=== PATIENT | male | born 1955 | race Caucasian/White ===

== ENCOUNTER → 2020-05-07 10:49 | Outpatient (CLI) | payer BC, SELFPAY | PROVIDERS: Visit Provider Family Medicine | DX: S91.302A Unspecified open wound, left foot, initial encounter (principal) | CPT/HCPCS: 87070; 87077; 87186; 87205 ==

== ENCOUNTER → 2020-05-14 14:20 | Outpatient (CLI) | payer BC, SELFPAY ==
--- NOTE | 2020-05-14 14:26 | XR_ITS ---
PROCEDURE: XR FOOT WT BEARING LT 3V CLINICAL INDICATION: foot wound Pain COMPARISON: No exams were available for comparison FINDINGS: Minimal osteoarthritic changes are present at the 1st MTP joint. Mild pes planus. Mild osteoarthritis also noted at the talonavicular and navicular cuneiform and tarsal metatarsal junction. There has been prior ORIF of the calcaneus with lateral bony sideplate and multiple cortical screws with an old calcaneal fracture noted. The talocalcaneal joint space is not well delineated on this exam. Hypertrophic changes are present along the calcaneus at the tail 0 calcaneal junction posteriorly. Small amount of soft tissue gas is noted at the distal metatarsal region. Bandage artifact is present at this area. IMPRESSION: Postsurgical changes with pes planus and osteoarthritis with old calcaneal fracture. Small amount of soft tissue gas along the dorsal aspect of the foot at the distal metatarsal region Dictated by: Tony Dela Cruz MD 05/14/2020 16:21 Tony Dela Cruz MD in [place] 05/14/2020 16:21
[2020-05-14 15:24] LABS: Basophils # 0.1 K/mm3 (0-0.2); Basophils % 0.7 % (0.1-2.0); Eosinophils # 0.4 K/mm3 (0.0-0.4); Eosinophils % 3.7 % (0.1-12.0); Hematocrit 52.2 % (42.0-52.0); Hemoglobin 16.8 g/dL (14.1-18.0); Lymphocytes # 2.2 K/mm3 (0.7-4.5); Lymphocytes % 19.3 % (10-50); Mean Corpuscular HGB Conc 32.2 g/dL (31.8-35.4); Mean Corpuscular Hemoglobin 28.7 pg (27.0-31.2); Mean Corpuscular Volume 89.2 fl (80-94); Mean Platelet Volume 7.8 fl (7.4-10.4); Monocytes % 8.6 % (1.7-9.3); Neutrophils # 7.8 K/mm3 (1.8-7.8); Neutrophils % 67.6 % (37.0-80.0); Platelet Count 420 K/mm3 (142-424); Red Blood Count 5.86 M/mm3 (4.60-6.20); Red Cell Distribution Width 14.7 % (11.5-17.5); White Blood Count 11.5 K/mm3 (4.8-10.8)
[2020-05-14 15:48] LABS: Erythrocyte Sedimentation Rate 9 mm/hr (0-20)
[2020-05-14 15:56] LABS: Chloride 96 mmol/L (98-107)
[2020-05-14 15:57] LABS: Potassium 3.9 mmoL/L (3.5-5.1); Sodium 139 mmol/L (136-145)
[2020-05-14 15:59] LABS: Alanine Aminotransferase 24 U/L (12-78); Alkaline Phosphatase 74 U/L (38-126); Aspartate Amino Transferase 27 U/L (17-59); Bilirubin,Total 0.5 mg/dl (0.2-1.3); Blood Urea Nitrogen 17 mg/dl (9-20); Estimated Glomerular Filt Rate 36 ml/min (>60); GFR (African American) 44 ML/MIN (>60)
[2020-05-14 16:00] LABS: Albumin Level 4.1 g/dl (3.5-5.0); Albumin/Globulin Ratio 1.2 (1.1-1.8); Anion Gap 12.9 mEq/L (5-15); Calcium 9.4 mg/dl (8.4-10.2); Carbon Dioxide 34 mmol/L (22.0-30.0); Globulin 3.5 g/dL (1.3-3.2); Glucose 101 mg/dl (74-100); Total Protein,Serum 7.6 g/dl (6.3-8.2)
[2020-05-14 16:05] LABS: C-Reactive Protein 3.6 mg/L (0-4)
== END ==
PROVIDERS: PCP Family Medicine; Visit Provider Nurse Practitioner
DX: L03.116 Cellulitis of left lower limb (principal); Z51.89 Encounter for other specified aftercare
CPT/HCPCS: 36415; 73630; 80053; 85025; 85651; 86140

== ENCOUNTER → 2020-05-21 10:52 | Outpatient (CLI) | payer BC, SELFPAY ==
--- NOTE | 2020-05-21 10:52 | MR_ITS ---
PROCEDURE: MR FOOT LT WO/W CON CLINICAL INDICATION: wound, cellulitis dropped a piece of wood on top of foot. caused hematoma's pt is a diabetic. redness and swelling of entire foot. open wound on dorsal aspect of foot around 2-4th metatarsals. COMPARISON: CR XR FOOT WT BEARING LT 3V from 05/14/2020 TECHNIQUE: Routine multiplanar multi echo sequences are performed without and with gadolinium enhancement. FINDINGS: There is extensive artifact in the ankle and hindfoot from prior talocalcaneal fusion with bony metallic hardware. The area of clinical concern is along the dorsal aspect of the midfoot at the metatarsal region. There is a skin defect within the dorsal aspect of the foot along mid to distal aspect of the 3rd metatarsal. This defect extends subcutaneously toward the distal aspect of the 3rd metatarsal. There is soft tissue swelling in this region with increased T2 signal and some enhancement. No abscess is evident. No bone marrow edema of the metatarsal area. There is increased T2 signal involving the distal aspect of the proximal phalanx of the 2nd toe as seen on the axial images. This however may be due to partial volume averaging from a small amount of fluid in this area as this is not reproduced on the coronal images. IMPRESSION: 1. Diffuse subcutaneous edema consistent with cellulitis along the dorsal aspect of the foot with a focal soft tissue defect at the mid to distal 3rd metatarsal region. No evidence of abscess or osteomyelitis. 2. Artifact with postsurgical changes in the hindfoot. 3. Small focal area of increased T2 signal involves the distal aspect of the proximal phalanx of the 2nd toe probably related to partial volume averaging from some underlying fluid at this area as opposed to true bone marrow edema. Dictated by: Tony Dela Cruz MD 05/24/2020 10:41 Tony Dela Cruz MD in [place] 05/24/2020 10:41
== END ==
PROVIDERS: PCP Family Medicine; Visit Provider Podiatrist
DX: L03.116 Cellulitis of left lower limb (principal); Z51.89 Encounter for other specified aftercare
CPT/HCPCS: 73720; A9576

== ENCOUNTER → 2020-05-31 09:56 | Outpatient (CLI) | payer BC, SELFPAY ==
[2020-05-31 10:43] LABS: Basophils # 0.1 K/mm3 (0-0.2); Eosinophils # 0.6 K/mm3 (0.0-0.4); Eosinophils % 5.2 % (0.1-12.0); Hematocrit 49.7 % (42.0-52.0); Hemoglobin 15.6 g/dL (14.1-18.0); Lymphocytes # 1.7 K/mm3 (0.7-4.5); Lymphocytes % 15.6 % (10-50); Mean Corpuscular HGB Conc 31.5 g/dL (31.8-35.4); Mean Corpuscular Volume 92.2 fl (80-94); Mean Platelet Volume 7.6 fl (7.4-10.4); Monocytes # 0.9 K/mm3 (0.1-1.0); Monocytes % 8.6 % (1.7-9.3); Neutrophils # 7.4 K/mm3 (1.8-7.8); Neutrophils % 69.6 % (37.0-80.0); Platelet Count 283 K/mm3 (142-424); Red Blood Count 5.39 M/mm3 (4.60-6.20); Red Cell Distribution Width 14.4 % (11.5-17.5); White Blood Count 10.7 K/mm3 (4.8-10.8)
[2020-05-31 12:05] LABS: Alanine Aminotransferase 28 U/L (12-78); Albumin Level 4.2 g/dl (3.5-5.0); Albumin/Globulin Ratio 1.2 (1.1-1.8); Alkaline Phosphatase 89 U/L (38-126); Anion Gap 12.1 mEq/L (5-15); Aspartate Amino Transferase 38 U/L (17-59); Blood Urea Nitrogen 17 mg/dl (9-20); Calcium 9.6 mg/dl (8.4-10.2); Carbon Dioxide 31 mmol/L (22.0-30.0); Chloride 99 mmol/L (98-107); Chol/HDL Ratio 7.6 (1-3.5); Cholesterol 237 mg/dl (140-200); Estimated Glomerular Filt Rate 51 ml/min (>60); GFR (African American) 62 ML/MIN (>60); Globulin 3.5 g/dL (1.3-3.2); Glucose 137 mg/dl (74-100); HDL Cholesterol 31 mg/dl (40-60); Potassium 4.1 mmoL/L (3.5-5.1); Sodium 138 mmol/L (136-145); Total Protein,Serum 7.7 g/dl (6.3-8.2); Triglycerides 346 mg/dl (30-150); VLDL Cholesterol 69 mg/dL (0-40)
[2020-05-31 12:16] LABS: C-Reactive Protein 1.7 mg/L (0-4)
[2020-05-31 12:31] LABS: Erythrocyte Sedimentation Rate 2 mm/hr (0-20)
[2020-05-31 13:52] LABS: Hemoglobin A1C 6.6 % (4.0-6.0)
[2020-06-07 09:03] LABS: Testosterone, Total, LC/MS 427.5 ng/dL (264.0-916.0)
== END ==
PROVIDERS: Visit Provider Podiatrist
DX: E11.42 Type 2 diabetes mellitus with diabetic polyneuropathy (principal); Z51.89 Encounter for other specified aftercare
CPT/HCPCS: 36415; 80053; 80061; 83036; 84403; 85025; 85651; 86140

== ENCOUNTER 2020-06-14 10:00 | Outpatient (RCR) | payer BC, SELFPAY | END 2020-06-14 10:45 | disposition home or self-care (01) | LOC: PT 10:00 | PROVIDERS: PCP Family Medicine; Visit Provider Family Medicine | DX: S91.302A Unspecified open wound, left foot, initial encounter; S95 Injury of blood vessels at ankle and foot level | CPT/HCPCS: 97161; 97164; 97597; 97598 ==

== ENCOUNTER → 2020-11-24 09:12 | Outpatient (CLI) | payer BC, SELFPAY ==
[2020-11-24 10:34] LABS: Coronavirus 19 IgG Antibody Negative (Negative); Coronavirus 19 IgM Antibody Negative (Negative)
== END ==
PROVIDERS: Visit Provider Internal Medicine Gastroenterology
DX: Z01.812 Encounter for preprocedural laboratory examination (principal); Z11.52 Encounter for screening for COVID-19; Z13.810 Encounter for screening for upper gastrointestinal disorder; Z12.11 Encounter for screening for malignant neoplasm of colon
CPT/HCPCS: 36415; 86328

== ENCOUNTER 2020-11-26 12:46 | Day surgery (SDC) | payer BC, SELFPAY ==
[2020-11-22 10:01] VITALS: BMI 42.3
[2020-11-26 13:22] VITALS: BP 117/93; PULSE 89; RESP 18; TEMP 37.2; O2SAT 94
[2020-11-26 13:35] LABS: POC Glucose,Bedside 114 (70-110)
[2020-11-26 14:20] VITALS: O2SAT 97
--- NOTE | 2020-11-26 14:33 | HMH.PROC ---
[facility] Procedure Note Procedure Note:: Upper Endoscopy Procedure Report: Esophagogastroduodenoscopy with cold biopsies Endoscopost: Ahmet Dixon II, MD Referring Physician: Dwaine Julio MD Date of Procedure: November 26, 2020 Equipment: Olympus GIF 190 standard upper endoscope Sedation: MAC sedation Indications: Mr. Melendez is a 64-year-old gentleman with recently worsened acid reflux and belching. He did have his PPI (I believe omeprazole) discontinued prior to his ultrasound last month and he developed more indigestion. EGD is performed for further evaluation. He reports no dysphagia. His symptoms are improving. He does get some bloating and lower abdominal discomfort. Procedure: Prior to the procedure, a history and physical exam was performed, and patient's medications and allergies were reviewed. The risks, benefits and alternatives of the sedation and procedure were discussed with the patient. All questions were answered and informed consent was obtained. The patient was brought to the procedure room. Patient identification and proposed procedure were verified by the physician and the nurse. The patient was placed in a left lateral decubitus position and the scope was passed under direct vision. Throughout the procedure, the patient's blood pressure, pulse, and oxygen saturations were monitored continuously. The upper GI endoscopy was accomplished without difficulty. The patient tolerated the procedure well. Findings: The scope was passed directly into the upper esophagus and advanced to the third portion of the duodenum. The post bulbar duodenum and duodenal bulb were normal with normal mucosa and conniventes. The scope was withdrawn through a normal duodenal bulb and pylorus into the stomach. There was bile reflux with moderate linear reactive gastropathy of the antrum and body of the stomach. The remainder of the fundus of the stomach was grossly normal. Upon retroflexion there was no hiatal hernia. 2 biopsies were taken in the antrum and along the lesser curvature for histology to rule out gastritis and/or H pylori. The scope was then withdrawn into the esophagus. There was a serrated Z-line. There was no evidence of reflux esophagitis or Tinoco's. There was no Schatzki's ring. There were tertiary contractions and evidence of mild to moderate esophageal dysmotility. The remainder of the esophageal mucosa was normal. Impression: 1. Nonerosive GERD with mild to moderate esophageal dysmotility 2. Bile reflux with moderate linear reactive gastropathy Plan: I will follow-up the biopsies. The patient's symptoms of GERD and dyspepsia are improving. I will proceed with diagnostic colonoscopy secondary to his recent bright red blood per rectum and lower abdominal discomfort.
--- NOTE | 2020-11-26 14:45 | HMH.PROC ---
[facility] Procedure Note Procedure Note:: Colonoscopy Procedure Report: Colonoscopy with hemorrhoid band ligation Endoscopist: Ahmet Dixon II, MD Referring physician: Dwaine Julio MD Date of Procedure: November 26, 2020 Equipment: Olympus 190 variable stiffness pediatric colonoscope Sedation: MAC sedation Indication: Mr. Melendez is a 64-year-old gentleman with bright red rectal bleeding and lower abdominal pain and discomfort. He reports regular bowel function but does have obstipation/incomplete defecation with excessive wiping. He reports no weight loss or family history of colon cancer. His last colonoscopy was 13 to 15 years ago. Procedure: Prior to the procedure, a history and physical exam was performed, and patient's medications and allergies were reviewed. The risks, benefits and alternatives of the sedation and procedure were discussed with the patient. All questions were answered and informed consent was obtained. The patient was brought to the procedure room. Patient identification and proposed procedure were verified by the physician and the nurse. The patient was placed in a left lateral decubitus position and the scope was passed under direct vision. Throughout the procedure, the patient's blood pressure, pulse, and oxygen saturations were monitored continuously. The colonoscopy was accomplished without difficulty. The patient tolerated the procedure well. Findings: On digital rectal examination there was normal rectal tone. There were no external hemorrhoids. The prostate was 2+, smooth, very mildly firm, symmetric without nodules. The colonoscope was introduced through the anal canal to the rectum and advanced to the cecum. The ileocecal valve and appendiceal orifice were identified. The scope was advanced a short distance into the ileum which appeared grossly normal. The scope was then withdrawn into the colon. The cecum, ascending and transverse colon and mucosa were grossly normal. There were scattered diverticuli throughout the descending and sigmoid colon (LEFT colon). The rectum itself was normal. Upon retroflexion within the rectum there were grade 2 internal hemorrhoids. 3 columns of hemorrhoids were banded using 3 bands with excellent ligation effect. The preparation was good throughout with [place] Preparation Score of 8 out of 9. The cecal time was 12 minutes. Impression: 1. Left-sided diverticulosis 2. Grade 2 internal hemorrhoids status post band ligation x3 Plan: I would encourage bulk fiber supplementation on a long-term daily maintenance basis. The patient will not require screening/surveillance colonoscopy again for 10 years by ACS guidelines.
[2020-11-26 14:54] VITALS: BP 103/50; PULSE 71; RESP 12; TEMP 36.9; O2SAT 94
[2020-11-26 15:04] VITALS: BP 112/61; PULSE 81; RESP 16; O2SAT 92
[2020-11-26 15:14] VITALS: BP 117/66; PULSE 73; RESP 16; O2SAT 96
[2020-11-26 15:24] VITALS: BP 122/78; PULSE 70; RESP 16; TEMP 36.9; O2SAT 96
--- NOTE | 2020-11-26 17:47 | P.PN_ITS ---
[facility] Anesthesia Checklist - Patient Identification Patient Identification: Arm Band - Structural Data Admitted From: Home Planned Operative Procedure/s: EGD Consent for Planned Operative Procedure(s) Verified: Yes Verified Documents: Surgical Consent, History and Physical - NPO Status Verified Time NPO: 00:00 - Airway Assessment C-Spine Mobility Assessed: Yes TMJ Mobility Assessed: Yes Dentition: Good Dentition - Neurological Assessment Level of Consciousness: Awake, Alert - Anesthesia Plan Anesthesia Risk discussed: Yes Anesthesia Plan: Verified ASA Class: III Anesthesia Type: MAC [facility] History Medical History: Reports:: Diabetes Mellitus Type 2 Denies:: Cancer, Diabetes Mellitus Type 1, Internal Pacemaker, MRSA, Seizures *Have you ever received a pneumonia vaccine?: No *Have you received a flu vaccine this season?: No Anesthesia experience/problems:: None Laterality Cases: Bilateral: Tonsillectomy Other Surgeries: Yes: Other. No: Pacemaker Amputation: No Fractures: Yes - *Social History Smoking Status: Never smoker Alcohol Intake: never Substance Use Type: denies use *Occupational Status:: retired Housing: house Household Members: spouse *Travel in the last 8 weeks: None Family Hx:: No significant family history
== END 2020-11-26 15:24 | disposition home or self-care (01) ==
LOC: OUTP 12:48
PROVIDERS: PCP Family Medicine; Visit Provider Internal Medicine Gastroenterology
PROC: 0DJ08ZZ Inspection of Upper Intestinal Tract, Via Natural or Artificial Opening Endoscopic (ICD-10-PCS; CPT 43235; principal; 2020-11-26 14:00)
DX: K57.30 Diverticulosis of large intestine without perforation or abscess without bleeding; K64.1 Second degree hemorrhoids; K21.9 Gastro-esophageal reflux disease without esophagitis; K22.4 Dyskinesia of esophagus; K31.9 Disease of stomach and duodenum, unspecified; E11.9 Type 2 diabetes mellitus without complications; I11.0 Hypertensive heart disease with heart failure; E78.5 Hyperlipidemia, unspecified; Z95.818 Presence of other cardiac implants and grafts; I50.9 Heart failure, unspecified; Z88.2 Allergy status to sulfonamides; Z79.899 Other long term (current) drug therapy
CPT/HCPCS: 45398; 43239; 82962

== ENCOUNTER → 2021-11-28 11:25 | Outpatient (CLI) | payer MEDICARE, SELFPAY ==
[2021-11-28 11:57] LABS: Basophils # 0.1 K/mm3 (0-0.2); Basophils % 1.5 % (0.1-2.0); Eosinophils # 0.3 K/mm3 (0.0-0.4); Hematocrit 47.3 % (42.0-52.0); Hemoglobin 15.1 g/dL (14.1-18.0); Lymphocytes # 1.7 K/mm3 (0.7-4.5); Lymphocytes % 18.2 % (10-50); Mean Corpuscular Hemoglobin 26.6 pg (27.0-31.2); Mean Corpuscular Volume 83.4 fl (80-94); Mean Platelet Volume 7.9 fl (7.4-10.4); Monocytes # 0.8 K/mm3 (0.1-1.0); Monocytes % 8.4 % (1.7-9.3); Neutrophils # 6.6 K/mm3 (1.8-7.8); Neutrophils % 68.9 % (37.0-80.0); Platelet Count 334 K/mm3 (142-424); Red Blood Count 5.67 M/mm3 (4.60-6.20); White Blood Count 9.6 K/mm3 (4.8-10.8)
[2021-11-28 12:39] LABS: Chloride 101 mmol/L (98-107); Potassium 4.4 mmoL/L (3.5-5.1); Sodium 138 mmol/L (136-145)
[2021-11-28 12:41] LABS: Blood Urea Nitrogen 19 mg/dl (9-20); Estimated Glomerular Filt Rate 44 ml/min (>60); GFR (African American) 53 ML/MIN (>60)
[2021-11-28 12:42] LABS: Alanine Aminotransferase 25 U/L (12-78); Albumin Level 4.1 g/dl (3.5-5.0); Albumin/Globulin Ratio 1.1 (1.1-1.8); Alkaline Phosphatase 66 U/L (38-126); Anion Gap 11.4 mEq/L (5-15); Aspartate Amino Transferase 28 U/L (17-59); Bilirubin,Total 0.7 mg/dl (0.2-1.3); Calcium 9.2 mg/dl (8.4-10.2); Carbon Dioxide 30 mmol/L (22.0-30.0); Globulin 3.7 g/dL (1.3-3.2); Glucose 102 mg/dl (74-100); Total Protein,Serum 7.8 g/dl (6.3-8.2)
[2021-11-28 12:47] LABS: C-Reactive Protein 1.3 mg/L (0-4)
[2021-11-28 13:03] LABS: Erythrocyte Sedimentation Rate 5 mm/hr (0-20)
== END ==
PROVIDERS: Visit Provider Nurse Practitioner Family
DX: T14.8XXD Other injury of unspecified body region, subsequent encounter (principal); Z51.89 Encounter for other specified aftercare; L03.116 Cellulitis of left lower limb
CPT/HCPCS: 36415; 80053; 85025; 85651; 86140; 87070; 87077; 87186; 87205